=== PATIENT | female | born 1965 | race Hispanic/Latino ===

== ENCOUNTER 2018-07-02 19:49 | Inpatient (IN) | payer OTHER ==
[~2018-07-02] VITALS: Ht 152.4 cm; Wt 72.6 kg
[2018-07-02 21:50] LABS: BASOPHILS # (AUTO) 0.1 (0.0-0.1); BASOPHILS % 0.3 % (0.0-1.0); EOSINOPHILS # (AUTO) 0.3 (0.0-0.4); EOSINOPHILS % 1.3 % (0.0-6.0); HEMOGLOBIN 12.5 g/dL (12.0-16.0); LYMPHOCYTES # (AUTO) 0.5 (1.0-3.2); MEAN CORPUSCULAR HEMOGLOBIN 30.6 pg (28-32); MEAN CORPUSCULAR HGB CONC 34.7 g/dL (31-35); MEAN CORPUSCULAR VOLUME 88.2 fL (81-99); MONOCYTES # (AUTO) 1.1 (0.2-0.8); MONOCYTES % 4.5 % (4.4-11.3); NEUTROPHILS # (AUTO) 17.9 (2.1-6.9); NEUTROPHILS % 76.5 % (38.7-80.0); PLATELET COUNT 153 x10e3/uL (140-360); RED BLOOD COUNT 4.08 x10e6/uL (3.6-5.1); RED CELL DISTRIBUTION WIDTH 12.7 % (11.7-14.4)
[2018-07-02 22:15] LABS: ALBUMIN/GLOBULIN RATIO 0.7 (0.8-2.0); ANION GAP 18.7 mmol/L (8-16); CALCIUM 9.7 mg/dL (8.4-10.2); CREATININE, SERUM 1.54 mg/dL (0.57-1.11); POTASSIUM 4.7 mmol/L (3.5-5.1)
[2018-07-02] MEDS ORDERED: PIPER-TAZ 3.375 GM 50 ML IV ONE (22:30)
[2018-07-02] MEDS ORDERED: METRONIDAZOLE 500MG/NS 100ML 100 ML IV ONE (22:30)
[2018-07-02 23:19] LABS: BACTERIA,URINE MANY /HPF; BILIRUBIN,URINE NEGATIVE (NEGATIVE); CLARITY,URINE SL CLOUDY (CLEAR); COLOR,URINE YELLOW (YELLOW); KETONES,URINE 1+ (NEGATIVE); LEUKOCYTE ESTERASE ,URINE NEGATIVE (NEGATIVE); NITRITE,URINE NEGATIVE (NEGATIVE); PROTEIN,URINE DIPSTICK 2+ (NEGATIVE); URINE UROBILINOGEN 0.2 mg/dL (0.2 - 1)
[2018-07-02 23:20] LABS: EPITHELIAL CELLS,URINE FEW /LPF
[2018-07-02] MEDS ORDERED: INSULIN REGULAR, HUMAN 100 UNIT/1 ML 3ML VIAL IV ONE (23:30)
[2018-07-02] MEDS ORDERED: ONDANSETRON HCL INJ 2MG/ML 2ML 2 MG/ML VIAL IV STA (23:37)
[2018-07-03] MEDS ORDERED: SODIUM CHLORIDE 0.9% 1000ML 1,000 ML IV SCH ×2
[2018-07-03] MEDS ORDERED: CEFTRIAXONE SOD 1 GM/NS 50 ML 50 ML IV ONE (00:04)
[2018-07-03] MEDS ORDERED: CEFTRIAXONE SOD 1 GM/NS 50 ML 50 ML IV STA (00:07)
[2018-07-03] MEDS ORDERED: IOPAMIDOL 370 MG/ML 200 ML INFUS..BTL INJ ONE (00:36)
[2018-07-03] MEDS ORDERED: SODIUM CHLORIDE 0.9% 50ML 50 ML ONE (00:36)
--- NOTE | 2018-07-03 01:23 | Diagnostic Imaging Report ---
EXAMINATION: CT of the abdomen and pelvis with contrast. TECHNIQUE: Helical CT images of the abdomen and pelvis were performed from the lung bases to the lesser trochanters after the intravenous administration of 100 cc of Omnipaque 300 and the oral administration of none. Coronal and sagittal reformatted images were obtained.Dose modulation, iterative reconstruction, and/or weight based adjustment of the mA/kV was utilized to reduce the radiation dose to as low as reasonably achievable. COMPARISON: None. CLINICAL HISTORY:Pain, vomiting, nausea DISCUSSION: ABDOMEN/PELVIS: LOWER THORAX:Unremarkable. HEPATOBILIARY: No focal hepatic lesions. No intra-or extrahepatic biliary ductal dilation. The gallbladder is normal. SPLEEN: No splenomegaly. PANCREAS: No focal masses or ductal dilatation. ADRENALS: No adrenal nodules. KIDNEYS/URETERS: Urothelial enhancement of the ureter with air in the mildly dilated renal collecting system of the left kidney. No region of decreased enhancement within the renal parenchyma or air within the renal parenchyma. PELVIC ORGANS/BLADDER: The bladder is normal. PERITONEUM/RETROPERITONEUM: No free air or fluid. LYMPH NODES: No intra-abdominal, retroperitoneal, pelvic or inguinal lymphadenopathy. VESSELS: The celiac trunk,superior and inferior mesenteric and bilateral renal arteries are patent The portal, superior mesenteric and splenic veins are patent. GI TRACT: No distention or wall thickening. BONES AND SOFT TISSUE: No bony destructive lesions. No soft tissue abnormalities. 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 Signed by: Dr. Dago Keenan M.D. on 07/03/2018 1:20 AM
[2018-07-03] MEDS: CEFTRIAXONE SOD 1 GM/NS 50 ML 50 ML IV SCH (02:12)
[2018-07-03] MEDS: ONDANSETRON HCL INJ 2MG/ML 2ML 2 MG/ML VIAL IV PRN ×4 (02:15→21:56)
--- OUTSIDE RECORDS SUMMARY | 2018-07-03 02:17 | XMS REPORT ---
Author Author [facility] Address Unknown Phone Unavailable Care Team Providers Care Director Of Surgery Name Role Phone Ragini CALIX Unavailable Unavailable Problems This patient has no known problems. Allergies, Adverse Reactions, Alerts This patient has no known allergies or adverse reactions. Medications This patient has no known medications. Results Test Description Test Time Test Comments Text Results Atomic Results Result Comments CT ABDOMEN/PELVIS W 2018-07-03 01:07:00 [facility] [address] [address] Patient Name: CHUCKY CABRALES MR #: [id number] : 1965 Age/Sex: 52/F Req #: [id number] Adm Physician: Ordered by: KAMARI DAHL SPINNING FRAME TENDER Report #: [id number] Location: ER Room/Bed: Procedure: [id number] CT/CT ABDOMEN/PELVIS W Exam Date: Exam Time: REPORT STATUS: Signed EXAMINATION: CT of the abdomen and pelvis with contrast. TE CHNIQUE: Helical CT images of the abdomen and pelvis were performed from the lung bases to the lesser trochanters after the intravenous administration of 100 cc of Omnipaque 300 and the oral administration of none. Coronal and sagittal reformatted images were obtained.Dose modulation, iterative reconstruction, and/or weight based adjustment of the mA/kV was utilized to reduce the radiation dose to as low as reasonably achievable. COMPARISON: None. CLINICAL HISTORY:Pain, vomiting, nausea DISCUSSION: ABDOMEN/PELVIS: LOWER THORAX:Unremarkable. HEPATOBI LIARY: No focal hepatic lesions. No intra-or extrahepatic biliary ductal dilation. The gallbladder is normal. SPLEEN: No splenomegaly. PANCREAS: No focal masses or ductal dilatation. ADRENALS: No adrenal nodules. KIDNEYS/URETERS: Urothelial enhancement of the ureter with air in the mildly dilated renal collecting system of the left kidney. No region of decreased enhancement within the renal parenchyma or air within the renal parenchyma. PELVIC ORGANS/BLADDER: The bladder is normal. PERITONEUM/RETROPERITONEUM: No free air or fluid. LYMPH NODES: No intra- abdominal, retroperitoneal, pelvic or inguinal lymphadenopathy. VESSELS: The celiac trunk,superior and inferior mesenteric and bilateral renal arteries are patent The portal, superior mesenteric and splenic veins are patent. GI TRACT: No distention or wall thickening. BONES AND SOFT TISSUE: No bony destructive lesions. No soft tissue abnormalities. 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 Signed by: Dr. Marcello Howell M.D. on 07/03/2018 1:20 AM Dictated By: MARCELLO HOWELL MD 9 Transcribed By: VANDANA on 07/03/18119 COPY TO: KAMARI DAHL NP
[2018-07-03] MEDS ORDERED: DEXTROSE 50% SYRINGE 50 ML IV PRN (02:30)
[2018-07-03] MEDS: SODIUM CHLORIDE 0.9% 1000ML 1,000 ML IV SCH ×2 (03:01→14:00)
[2018-07-03] MEDS ORDERED: no home meds (03:52)
[2018-07-03] MEDS ORDERED: METOCLOPRAMIDE HCL 10 MG/2ML VIAL ONE (04:54)
[2018-07-03] MEDS ORDERED: DIPHENHYDRAMINE HCL INJ 50 MG/ML VIAL ONE (04:54)
[2018-07-03] MEDS ORDERED: METOCLOPRAMIDE HCL 10 MG/2ML VIAL IV ONE (05:15)
[2018-07-03] MEDS ORDERED: DIPHENHYDRAMINE HCL INJ 50 MG/ML VIAL IV ONE (05:15)
[2018-07-03] MEDS ORDERED: ACETAMINOPHEN 1000 MG/100 ML IV PRN (06:45)
[2018-07-03] MEDS ORDERED: INSULIN REGULAR, HUMAN 100 UNIT/1 ML 3ML VIAL SQ SCH ×2 (07:30→16:30)
--- NOTE | 2018-07-03 08:08 | NUR ---
Dr. Roach rounding at bedside at this time. Dr. Roach updated on pt's status and bed status. Pt is in no acute distress at this time.
--- NOTE | 2018-07-03 08:35 | NUR ---
Placed call to Dr. Roach's office regarding switching order from levemir to lantus. Spoke with A/S.
--- NOTE | 2018-07-03 08:58 | NUR ---
Dr. Michael returned call regarding consult. Addendum: 07/03/[address] Michael provided additional orders.
[2018-07-03 09:02] LABS: BASOPHILS % 0.2 % (0.0-1.0); EOSINOPHILS # (AUTO) 0.2 (0.0-0.4); EOSINOPHILS % 0.9 % (0.0-6.0); HEMATOCRIT 32.5 % (34.2-44.1); HEMOGLOBIN 11.1 g/dL (12.0-16.0); LYMPHOCYTES # (AUTO) 0.5 (1.0-3.2); LYMPHOCYTES % 2.6 % (18.0-39.1); MEAN CORPUSCULAR HEMOGLOBIN 30.9 pg (28-32); MEAN CORPUSCULAR HGB CONC 34.2 g/dL (31-35); MEAN CORPUSCULAR VOLUME 90.5 fL (81-99); MONOCYTES # (AUTO) 0.9 (0.2-0.8); MONOCYTES % 4.7 % (4.4-11.3); NEUTROPHILS # (AUTO) 17.4 (2.1-6.9); PLATELET COUNT 141 x10e3/uL (140-360); RED BLOOD COUNT 3.59 x10e6/uL (3.6-5.1)
[2018-07-03] MEDS ORDERED: INSULIN LISPRO 100 UNIT/1 ML 3ML VIAL SQ ONE (09:30)
--- NOTE | 2018-07-03 09:38 | NUR ---
Dr. Alamo confirmed giving the pt an additonal 10 units of Humalog and starting the high sliding scale at lunch time. Addendum: 07/03/18 at 0948 by JOSIE additional
[2018-07-03] MEDS ORDERED: INSULIN LISPRO 100 UNIT/1 ML 3ML VIAL SQ STA (09:40)
[2018-07-03 11:01] LABS: BAND NEUTROPHILS % (MANUAL) 1 %; LYMPHOCYTES % (MANUAL) 1 % (19-48); METAMYELOCYTES % (MANUAL) 1 % (0-0); MONOCYTES % (MANUAL) 1 % (3.4-9.0); NEUTROPHILS % (MANUAL) 96 % (40-74)
[2018-07-03 11:02] LABS: PLATELET ESTIMATE SLIGHTLY DECREASED; PLATELET MORPHOLOGY COMMENT NORMAL; RBC MORPHOLOGY COMMENT NORMAL
--- NOTE | 2018-07-03 11:12 | Consultation ---
DATE OF CONSULTATION: 07/03/2018 REASON FOR CONSULTATION: Pyelonephritis. HISTORY OF PRESENT ILLNESS: Arely Beltran is a 52-year-old woman with no previous urological evaluation. The patient does report having stress type urinary incontinence. Denies urgency. No incontinence. Denies previous urinary tract infections, urolithiasis, or hematuria. She denies any fevers. The patient had left-sided abdominal pains and flank pains reported to the emergency room, was found to have pyelonephritis, was admitted. Urological consultation was sought. PAST SURGICAL HISTORY: None. ALLERGIES: PENICILLIN. CURRENT MEDICATIONS: Please refer to the MAR. SOCIAL HISTORY: The patient denies smoking, ethanol, and drug use. She is a homemaker. She has supportive family at the bedside. FAMILY HISTORY: Noncontributory to the active urological problems. REVIEW OF SYSTEMS: Discussed as above in history of present illness. PAST MEDICAL HISTORY: Otherwise negative for all systems. PHYSICAL EXAMINATION: GENERAL: Very pleasant woman lying in bed, in no apparent distress. She is currently afebrile. VITAL SIGNS: Currently stable. ABDOMEN: Soft, nondistended, and nontender without costovertebral angle tenderness. Kidneys not palpable, without hepatosplenomegaly. No obvious evidence of hernia. For the remaining physical examination systems, please refer to the admission history and physical as well as the ERT sheet. IMAGING AND LABORATORY STUDIES: CT scan of the abdomen and pelvis shows mild left-sided hydronephrosis with pyelonephritis with emphysematous pyelitis, but no evidence of stone. The patient's sodium was low at 130. The patient's glucose is highly elevated at 575. The patient's creatinine is elevated at 1.54. The patient does have severe leukocytosis with white blood cell count of 23,300. Urinalysis shows microhematuria and pyuria. Lactic acid is elevated consistent with sepsis. Blood cultures are pending. ER doctor told me that she would call the lab to ensure that urine culture is actually being done and is ordered. ASSESSMENT: 1. Stress-type urinary incontinence. 2. Left renal colic. 3. Left pyelonephritis. 4. Complicated urinary tract infection. 5. Mild left hydronephrosis. 6. Hyponatremia. 7. Acute renal failure. 8. Leukocytosis. 9. Microhematuria. 10. Urosepsis present on admission. PLAN: 1. I agree with consulting Infectious Disease service. 2. The patient will need cystoscopy and retrograde pyelograms when she is in her normal state of health. 3. The patient will need ongoing urological followup as well as workup. Thank you very much for involving us in the care of your patient. We will be happy to follow her along with you as well as an outpatient. Sergio MD Katie OH/ADARSH /[id number] cc: Amber Roach MD
--- NOTE | 2018-07-03 11:18 | NUR ---
Pt noted to be resting in bed with eyes closed at this time. Family member is at bedside.
[2018-07-03] MEDS ORDERED: INSULIN LISPRO 100 UNIT/1 ML 3ML VIAL SQ SCH (11:30)
--- NOTE | 2018-07-03 13:13 | NUR ---
Call placed to Dr. Roach's office regarding insulin orders, spoke with A/S.
--- NOTE | 2018-07-03 13:20 | NUR ---
Dr. Roach returned the call that was placed and reclarified insulin orders.
--- NOTE | 2018-07-03 13:51 | NUR ---
PATIENT ARRIVED ON THE UNIT AT 1341 PER BED- PATIENT IN STABLE CONDITION WITH NO S/S OF RESPIRATORY DISTRESS. NO PAIN VOICED. CALL LIGHT IS WITHIN REACH, PATIENT INSTRUCTED TO CALL FOR ASSISTANCE NEEDED.
[2018-07-03 13:55] VITALS: BP 132/61
[2018-07-03 14:00] VITALS: BP 132/61
--- NOTE | 2018-07-03 14:23 | NUR ---
DR. RO ROUNDING ON PATIENT AT THIS TIME, WILL ADD NEW ORDERS.
[2018-07-03 14:40] LABS: CHOLESTEROL 180 MD/DL (0-199); HDL CHOLESTEROL 10 MG/DL (40-60); TRIGLYCERIDES 493 MG/DL (0-149)
--- NOTE | 2018-07-03 14:52 | History and Physical ---
HISTORY OF PRESENT ILLNESS: Ms. Beltran is a 52-year-old female, who denies any prior medical history, came to the emergency room complaining of two days of nausea, vomiting, and chills. PAST MEDICAL HISTORY: She denies. ALLERGIES: SHE IS ALLERGIC TO PENICILLIN. PAST SURGICAL HISTORY: Denies any surgeries. SOCIAL HISTORY: She lives at home with her family. She does not smoke and she does not drink. PHYSICAL EXAMINATION: GENERAL: Today, she is awake and alert. She is feeling okay. VITAL SIGNS: Temperature is 99.4 and blood pressure 162/84. HEART: Regular rate. LUNGS: Clear to auscultation. ABDOMEN: Soft. LAB WORK: White count is 23,360, hemoglobin 12.5, and hematocrit 36. Potassium is 4.7, glucose was 326 this morning. Lactic acid is elevated. Sodium is 130, creatinine is 1.54. She had an abdominal and pelvic CT that shows left upper urinary tract with emphysematous pyelitis. ADMITTING DIAGNOSES: 1. New onset diabetes with chronic kidney disease. 2. Chronic kidney disease, stage 3. 3. Left pyelonephritis. PLAN: The plan with this patient is to get Infectious Disease consult and Urology consult. We are going to consult Endocrinology. ADA diet. Sliding scale with insulin. We are going to start the patient on Humalog and Levemir. Continue IV antibiotics. Continue IV fluids. Continue to monitor blood sugar and white count. All this was discussed with the patient. All questions were answered to satisfaction. MD TOMAS Esquivel/MODL /[id number]
[2018-07-03 15:00] LABS: THYROID STIMULATING HORMONE 2.338 uIU/mL (0.350-4.940)
[2018-07-03 16:00] VITALS: BP 134/60
[2018-07-03] MEDS: INSULIN LISPRO 100 UNIT/1 ML 3ML VIAL SQ SCH ×3 (16:30→20:32)
[2018-07-03] MEDS: BISACODYL 10 MG SUPP PR PRN (16:59)
[2018-07-03] MEDS: LEVOFLOXACIN 500MG/D5W 100ML 100 ML IV SCH (17:22)
--- NOTE | 2018-07-03 17:53 | Consultation ---
DATE OF CONSULTATION: 07/03/2018 Endocrine Consultation Thank you very much for referring this patient. HISTORY OF PRESENT ILLNESS: This is a 52-year-old lady, who was referred to me for evaluation of new-onset diabetes mellitus. The patient speaks Czech mostly. She came to the hospital with history of abdominal pain, polyuria, and polydipsia. On further evaluation, blood sugar is 575; however, anion gap was normal. Her creatinine was high at 1.54. The patient does not have history of diabetes in the past, but she does have family history of diabetes mellitus. She is complaining of weight loss and leg cramps. PHYSICAL EXAMINATION: GENERAL: Today, the patient is alert, awake, little bit apprehensive. VITAL SIGNS: Her heart rate is around 78, blood pressure is 130/80 mmHg. HEENT: Essentially unremarkable. Thyroid is palpable. Clinically, she is euthyroid. CHEST: Bilateral vesicular breathing, no rales. CARDIAC: First and second heart sounds. There is no third or fourth heart sound. GI: Abdomen is soft and non-tender. 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 CLINICAL IMPRESSION: 1. Diabetes mellitus, type 2, new onset. 2. Urinary tract infection, rule out pyelonephritis. PLAN: The plan at this time is to do hemoglobin A1c, thyroid function test. Monitor her blood sugars closely and start her on combination of Lantus and Humalog insulin. I have discussed in detail the course of action with the patient and the family. Thanks again for referring this patient. I will be following this patient with you. MD ZAIN Tyler/MODL /[id number] DAMON
--- NOTE | 2018-07-03 19:17 | NUR ---
PATIENT IS IN STABLE CONDITION WITH NO S/S OF RESPIRATORY DISTRESS. NO PAIN VOICED. PATIENT RECEIVED NAUSEA MEDICATION x1. FAMILY MEMBER PRESENT IN ROOM. IV FLUIDS INFUSING. CALL LIGHT IS WITHIN REACH OF PATIENT- PATIENT INSTRUCTED TO CALL FOR ASSISTANCE NEEDED. BEDSIDE REPORT GIVEN TO ONCOMING NURSE.
--- NOTE | 2018-07-03 19:53 | NUR ---
RECEIVED PT IN BED AOX3 .RESPIRATIONS ARE EVEN AND UNLABORED .FAMILY AT THE BEDSIDE .CALL LIGHT WITH IN REACH .CONTINUE TO MONITOR
[2018-07-03 20:00] VITALS: BP 127/62
[2018-07-03] MEDS ORDERED: INSULIN GLARGINE 100 UNITS/ML VIAL SQ SCH (21:00)
--- NOTE | 2018-07-03 23:08 | Consultation ---
DATE OF CONSULTATION: REASON FOR CONSULTATION: Recommendation for antibiotic. HISTORY OF PRESENT ILLNESS: This patient is very pleasant 52-year-old female, has no past medical history and no past surgical history, comes in with 2 days of nausea, vomiting, and abdominal discomfort. The patient comes into the emergency room, where she was evaluated. Her white count was 23 and hemoglobin 12. The patient had a CAT scan that showed left upper tract pyelonephritis. The patient is being admitted. I am asked to see her. She is currently lying in bed comfortably. She denies urgency or frequency. PAST MEDICAL HISTORY: She denies. PAST SURGICAL HISTORY: She denies. ALLERGIES: NKA. SOCIAL HISTORY: There is no smoking, drug abuse, or alcohol abuse. FAMILY HISTORY: Noncontributory. REVIEW OF SYSTEMS: HEENT: Negative. PULMONARY: Negative. CARDIAC: Negative. : Negative. SKIN: There is no rash. LABORATORY DATA: On admission, white count 23.1, hemoglobin 12. Sodium 130, potassium 4.7, glucose 575. Her blood cultures and urine cultures are still pending. The patient was started on ceftriaxone. PHYSICAL EXAMINATION: GENERAL: She is currently alert, oriented, does not seem to be in acute distress. VITAL SIGNS: Stable. Currently afebrile. HEENT: She is not icteric. NECK: Supple. CHEST: Clear. HEART: S1 and S2. No S3, S4, or murmur. ABDOMEN: Soft. Bowel sounds present. No tenderness. EXTREMITIES: No edema. SKIN: No rash. IMPRESSION: 1. Sepsis secondary to pyelonephritis, currently on Rocephin. We will add Levaquin. Await urine cultures and blood cultures. Recheck CBC. Recheck Chem panel. 2. Diabetes. 3. We will follow with you. Thank you so much for asking me to see this patient. MD PIERCE Heard/ADARSH /[id number]
[2018-07-03 23:50] VITALS: BP 138/65
[2018-07-04] VITALS (7 sets, daily range): BP systolic 125–183; BP diastolic 65–90
[2018-07-04] MEDS: BISACODYL 10 MG SUPP PR PRN
[2018-07-04] MEDS: CEFTRIAXONE SOD 1 GM/NS 50 ML 50 ML IV SCH (02:00)
[2018-07-04] MEDS: SODIUM CHLORIDE 0.9% 1000ML 1,000 ML IV SCH ×4 (05:11→22:55)
--- NOTE | 2018-07-04 06:10 | NUR ---
PT RESTED DURING THE NIGHT AND DENIES PAIN PT HAD BM TODAY .FAMILY NEAR TO THE BEDSIDE .CONTINUE TO MONITOR
[2018-07-04 06:14] LABS: BASOPHILS % 0.2 % (0.0-1.0); EOSINOPHILS % 0.2 % (0.0-6.0); HEMATOCRIT 31.1 % (34.2-44.1); HEMOGLOBIN 10.6 g/dL (12.0-16.0); LYMPHOCYTES # (AUTO) 0.8 (1.0-3.2); LYMPHOCYTES % 4.2 % (18.0-39.1); MEAN CORPUSCULAR HEMOGLOBIN 30.6 pg (28-32); MEAN CORPUSCULAR HGB CONC 34.1 g/dL (31-35); MEAN CORPUSCULAR VOLUME 89.9 fL (81-99); MONOCYTES # (AUTO) 1.3 (0.2-0.8); MONOCYTES % 6.7 % (4.4-11.3); NEUTROPHILS # (AUTO) 17.7 (2.1-6.9); NEUTROPHILS % 88.2 % (38.7-80.0); PLATELET COUNT 150 x10e3/uL (140-360); RED BLOOD COUNT 3.46 x10e6/uL (3.6-5.1); RED CELL DISTRIBUTION WIDTH 13.4 % (11.7-14.4)
[2018-07-04 06:31] LABS: ALANINE AMINOTRANSFERASE 16 IU/L (0-55); ALBUMIN 2.2 g/dL (3.5-5.0); ALBUMIN/GLOBULIN RATIO 0.6 (0.8-2.0); ALKALINE PHOSPHATASE 99 IU/L (40-150); ANION GAP 14.2 mmol/L (8-16); BLOOD UREA NITROGEN 24 mg/dL (7-26); BUN/CREATININE RATIO 28 (6-25); CALCIUM 8.2 mg/dL (8.4-10.2); CARBON DIOXIDE 18 mmol/L (22-29); CHLORIDE 104 mmol/L (98-107); CREATININE, SERUM 0.87 mg/dL (0.57-1.11); EST GLOMERULAR FILTRATION RATE > 60 ML/MIN (60-); GLUCOSE 221 mg/dL (74-118); POTASSIUM 4.2 mmol/L (3.5-5.1); SODIUM 132 mmol/L (136-145)
--- NOTE | 2018-07-04 07:11 | NUR ---
REPORT GIVEN ON COMING NURSE
[2018-07-04] MEDS: INSULIN LISPRO 100 UNIT/1 ML 3ML VIAL SQ SCH ×7 (07:30→21:00)
[2018-07-04] MEDS ORDERED: LACTULOSE SYRUP 20 GM/30 ML UDC PO ONE (10:15)
--- NOTE | 2018-07-04 11:47 | Progress Note ---
DATE: 07/04/2018 SUBJECTIVE: Ms. Beltran is a 52-year-old female, who denies any prior medical history, came to the emergency room complaining of two days of nausea, vomiting, and chills. She was found to have elevated blood sugar and pyelonephritis, started on insulin and IV antibiotics. OBJECTIVE: GENERAL: Today, she is awake and alert. VITAL SIGNS: Temperature is 97.7 and blood pressure 125/69. HEART: Regular rate. LUNGS: Clear to auscultation. ABDOMEN: Distended and soft. LABORATORY DATA: On the lab work; potassium 4.2, creatinine is 0.87, glucose is 221. White count is 20,000, hemoglobin 10.6, and hematocrit 31.1. CAT scan showed probably pyelonephritis. ASSESSMENT: On this patient: 1. New onset diabetes with hyperglycemia. 2. Diabetes with chronic kidney disease. 3. Chronic kidney disease, stage 3, improving. 4. Sepsis secondary to left pyelonephritis. 5. Leukocytosis. 6. Constipation. PLAN: At present time is to continue ADA diet, continue insulin, continue IV antibiotics. We are going to give her some lactulose to see if we can get a bowel movement. We are awaiting for final urine culture results. All this was discussed with the patient and daughter at bedside. All questions were answered to satisfaction. MD TOMAS Esquivel/ADARSH /[id number]
[2018-07-04 12:46] LABS: ALBUMIN 2.2 g/dL (3.5-5.0); BILIRUBIN,DIRECT 0.2 mg/dL (0.0-0.5)
[2018-07-04] MEDS: ONDANSETRON HCL INJ 2MG/ML 2ML 2 MG/ML VIAL IV PRN ×3 (14:32→22:55)
--- NOTE | 2018-07-04 16:21 | NUR ---
CASE MANAGEMENT INITIAL ASSESSMENT Life Claims Examiner to bedside to discuss plan of care with patient/family. CM/SW role and care transitions discussed. Anticipated discharge plan discussed along with duration of care. CM/SW discussed patients right to make decisions in care. CM/SW work hours given. Patient lives: [place] Admit/Transfer: ER Hospital/ER visits since last admit: NONE POA/Emergency contact: SHIELA / @ [phone] Current/Previous Home Health: NONE PCP/Follow-up Care: NONE Current/Previous DME: NONE Other Services: NONE Employment Status: UNEMPLOYED, HOUSEWIFE Areas of Concerns: DIABETES TEACHING; NEW ONSET DM Referral Needs: GLUCOMETER, DIETITIAN Education Needs: DM TEACHING, GLUCOMETER, DIET IMM/GODOY given and signed (if applicable): N/A Goal for discharge: RETURN HOME SAFELY CM/SW left business card at the bedside with contact information. Name and number was also written on the patients whiteboard. Patient verbalized understanding of discussion. CM will follow-up with ongoing discharge and transition of care needs.
[2018-07-04] MEDS: LEVOFLOXACIN 500MG/D5W 100ML 100 ML IV SCH (16:56)
[2018-07-04] MEDS ORDERED: LACTULOSE SYRUP 20 GM/30 ML UDC PO NR ×2 (18:00→22:00)
--- NOTE | 2018-07-04 19:05 | NUR ---
BS report completed with morning nurse. Pt alert to name. Setswana speaking. Sitting on recliner. Family at bedside. Denies pain at this time. Call [place] within reach. Will continue to monitor.
[2018-07-04] MEDS: INSULIN GLARGINE 100 UNITS/ML VIAL SQ SCH (21:00)
[2018-07-05] VITALS (7 sets, daily range): BP systolic 152–177; BP diastolic 74–98
[2018-07-05] MEDS: ONDANSETRON HCL INJ 2MG/ML 2ML 2 MG/ML VIAL IV PRN ×5 (02:50→23:35)
[2018-07-05] MEDS: INSULIN LISPRO 100 UNIT/1 ML 3ML VIAL SQ SCH ×7 (08:53→21:00)
[2018-07-05] MEDS: SODIUM CHLORIDE 0.9% 1000ML 1,000 ML IV SCH ×2 (08:54→17:49)
[2018-07-05] MEDS ORDERED: LACTULOSE SYRUP 20 GM/30 ML UDC PO PRN (10:15)
--- NOTE | 2018-07-05 12:14 | Progress Note ---
DATE: 07/05/2018 SUBJECTIVE: Ms. Beltran is a 52-year-old female, who denies any past medical history, came to the emergency room complaining of nausea, vomiting, and chills. She was found to have blood sugar around 500 and pyelonephritis, started on IV antibiotics. She is on ADA diet and insulin. At present time, she is doing much better. PHYSICAL EXAMINATION: GENERAL: She is awake and alert. VITAL SIGNS: Temperature is 98.9, blood pressure 160/92. HEART: Regular rate. LUNGS: Clear to auscultation. ABDOMEN: Soft. LABORATORY DATA: On the blood work, potassium 4.3, creatinine 0.87, glucose 221. White count 20,000, hemoglobin 10.6, hematocrit 31.1. ASSESSMENT: 1. New-onset diabetes with hyperglycemia. 2. And leukocytosis. 3. Sepsis secondary to left pyelonephritis. 4. Constipation. PLAN: At present time is to continue ADA diet, continue insulin, continue IV antibiotics, continue to monitor blood sugar. Urine culture was positive for E coli that is sensitive to cefuroxime. So once she gets cleared by Infectious Disease and assembly leader, we can put her on p.o. antibiotics and discharge home if tomorrow white count is down to normal. All this was discussed with the patient. All questions were answered to satisfaction. MD TOMAS Esquivel/ADARSH /[id number]
[2018-07-05] MEDS: CEFTRIAXONE SOD 1 GM/NS 50 ML 50 ML IV SCH (12:52)
--- NOTE | 2018-07-05 19:05 | NUR ---
BS report completed with morning nurse. Pt alert to name. Mongolian speaking. Lying in bed HOB 60 degrees. Family at bedside. Denies pain at this time. Call [place] within reach. Will continue to monitor.
[2018-07-05] MEDS: INSULIN GLARGINE 100 UNITS/ML VIAL SQ SCH (21:00)
--- NOTE | 2018-07-05 23:36 | NUR ---
Admin prn Zofran c/o nausea. No vomiting noted. No distress noted. Call [place] within reach. Family at bedside.
[2018-07-06] VITALS (7 sets, daily range): BP systolic 120–174; BP diastolic 63–80
[2018-07-06] MEDS: SODIUM CHLORIDE 0.9% 1000ML 1,000 ML IV SCH (01:49)
[2018-07-06] MEDS: ONDANSETRON HCL INJ 2MG/ML 2ML 2 MG/ML VIAL IV PRN ×2 (04:43→09:30)
[2018-07-06 06:14] LABS: HEMOGLOBIN 12.3 g/dL (12.0-16.0); MEAN CORPUSCULAR HEMOGLOBIN 30.1 pg (28-32); MEAN CORPUSCULAR HGB CONC 34.2 g/dL (31-35); MEAN CORPUSCULAR VOLUME 88.2 fL (81-99); PLATELET COUNT 206 x10e3/uL (140-360); RED BLOOD COUNT 4.08 x10e6/uL (3.6-5.1); RED CELL DISTRIBUTION WIDTH 13.2 % (11.7-14.4)
[2018-07-06 06:44] LABS: ANION GAP 10.9 mmol/L (8-16); BLOOD UREA NITROGEN 13 mg/dL (7-26); BUN/CREATININE RATIO 18 (6-25); CALCIUM 8.1 mg/dL (8.4-10.2); CARBON DIOXIDE 24 mmol/L (22-29); CHLORIDE 103 mmol/L (98-107); CREATININE, SERUM 0.74 mg/dL (0.57-1.11); EST GLOMERULAR FILTRATION RATE > 60 ML/MIN (60-); GLUCOSE 143 mg/dL (74-118); SODIUM 135 mmol/L (136-145)
[2018-07-06 06:48] LABS: POTASSIUM 2.9 mmol/L (3.5-5.1)
--- NOTE | 2018-07-06 06:52 | NUR ---
RECEIVED PATIENT RESTING IN BED. NO ACUTE DISTRESS NOTED. FAMILY AT BEDSIDE. CALL LIGHT WITHIN REACH. BED IN THE LOWEST POSITION.
[2018-07-06 07:21] LABS: LYMPHOCYTES % (MANUAL) 16 % (19-48); MONOCYTES % (MANUAL) 10 % (3.4-9.0); NEUTROPHILS % (MANUAL) 74 % (40-74); PLATELET ESTIMATE ADEQUATE; PLATELET MORPHOLOGY COMMENT NORMAL; TEAR DROP CELLS RN
[2018-07-06] MEDS: INSULIN LISPRO 100 UNIT/1 ML 3ML VIAL SQ SCH ×7 (07:30→16:30)
[2018-07-06] MEDS ORDERED: POTASSIUM CHLORIDE 20 MEQ TAB CR PO STA (09:10)
[2018-07-06] MEDS: CEFTRIAXONE SOD 1 GM/NS 50 ML 50 ML IV SCH (12:50)
[2018-07-06] MEDS ORDERED: POTASSIUM CHLORIDE 20 MEQ TAB CR PO SCH (13:00)
[2018-07-06] MEDS ORDERED: INSULIN LISPRO 100 UNIT/1 ML 3ML VIAL SQ ONE (14:00)
[2018-07-06] MEDS ORDERED: ONDANSETRON HCL 4 MG ORAL DISINTEGRATING TAB PO PRN (14:30)
--- NOTE | 2018-07-06 17:58 | NUR ---
RECEIVED DC ORDER FROM MD, PATIENT IS IN STABLE CONDITION. DENIES PAIN OR DISCOMFORT. IV LINE TO RIGHT AC INFILTRATED EARLIER, MD NOTIFIED, NO BLEEDING AT SITE NOTED. DISCHARGE TEACHING PROVIDED TO PATIENT AND 2 FAMILY MEMBER, THEY ALL VERBALIZED UNDERSTANDING. DISCHARGE FOLDER AND PERSONAL ITEMS ON HAND. PATIENT ACCOMPANIED TO PRIVATE AUTO VIA WHEELCHAIR BY STAFF.
--- NOTE | 2018-07-06 18:32 | Discharge Summary ---
HOSPITAL COURSE: Ms. Beltran is a 52-year-old female, who denies any prior medical history, who came complaining of nausea, vomiting, and chills to the emergency room. She was found to have pyelonephritis and elevated blood sugar. She has been seen by Infectious Disease, urologist, and jewelry engraver much better. Potassium is a little low today, so we are going to replace it and we are going to see if we can discharge her home if is okay with Dr. Alamo today. PHYSICAL EXAMINATION: GENERAL: She is awake and alert. VITAL SIGNS: Temperature is 98.3, blood pressure 163/79. HEART: Regular rate. LUNGS: Clear to auscultation. ABDOMEN: Soft. LABORATORY DATA: On the blood work; potassium is 2.9, creatinine is 0.74, glucose 143, white count 11.2, hemoglobin 12.3. Urine shows E coli infection. DISCHARGE DIAGNOSES: 1. New-onset diabetes. 2. Leukocytosis. 3. Sepsis secondary to left pyelonephritis. 4. Constipation. 5. Urinary tract infection with Escherichia coli. 6. Hypertension. PLAN: The plan at present time is to see if we can discharge her home on ADA diet and diabetic medication as per Dr. Alamo. She is going to be on Ceftin for the urine infection. We are going to start her on Colace, statins, and blood pressure medications. We are going to replace potassium and repeat the levels today; if stable, she may go home today or tomorrow. All this was discussed with the patient. All questions were answered to satisfaction. MD TOMAS Esquivel/ADARSH /[id number]
== END 2018-07-06 17:58 | disposition home or self-care (01) | DRG 872 ==
LOC: ER 19:49 → ERHOLD 07-03 02:14 → MED/SURG3 07-03 13:37
PROVIDERS: ADMIT Internal Medicine; ATTEND Internal Medicine
DX: A41.51 Sepsis due to Escherichia coli [E. coli] (principal); N13.6 Pyonephrosis; E87.1 Hypo-osmolality and hyponatremia; N17.9 Acute kidney failure, unspecified; K59.00 Constipation, unspecified; Z16.12 Extended spectrum beta lactamase (ESBL) resistance; Z79.84 Long term (current) use of oral hypoglycemic drugs; N39.3 Stress incontinence (female) (male); N23 Unspecified renal colic; I10 Essential (primary) hypertension; E87.6 Hypokalemia; E11.65 Type 2 diabetes mellitus with hyperglycemia; E11.22 Type 2 diabetes mellitus with diabetic chronic kidney disease; I12.9 Hypertensive chronic kidney disease with stage 1 through stage 4 chronic kidney disease, or unspecified chronic kidney disease; N18.3 Chronic kidney disease, stage 3 (moderate)
CPT/HCPCS: 36415; 74177; 80048; 80053; 80061; 80076; 81001; 82150; 82948; 83036; 83605; 83690; 83880; 84132; 84439; 84443; 85007; 85025; 85027; 87040; 87086; 87186; 99284; J0696; J1200; J1815; J1956; J2405; J2543; J2765; J7030; Q9967

== ENCOUNTER 2024-05-22 12:25 | Inpatient (IN) | payer OTHER ==
[~2024-05-22] VITALS: Ht 152.4 cm; Wt 68.9 kg
[~2024-05-22 12:25] MED LIST: no home meds
[2024-05-22 12:52] VITALS: TEMP 98.5
[2024-05-22 13:18] LABS: BASOPHILS # (AUTO) 0.1 (0.0-0.1); BASOPHILS % 0.6 % (0.0-1.0); EOSINOPHILS # (AUTO) 0.2 (0.0-0.4); EOSINOPHILS % 2.1 % (0.0-6.0); HEMATOCRIT 36.2 % (34.2-44.1); HEMOGLOBIN 12.6 g/dL (12.0-16.0); LYMPHOCYTES # (AUTO) 2.1 (1.0-3.2); LYMPHOCYTES % 21.4 % (18.0-39.1); MEAN CORPUSCULAR HEMOGLOBIN 30.4 pg (28-32); MEAN CORPUSCULAR HGB CONC 34.8 g/dL (31-35); MEAN CORPUSCULAR VOLUME 87.2 fL (81-99); MONOCYTES # (AUTO) 0.5 (0.2-0.8); MONOCYTES % 5.2 % (4.4-11.3); NEUTROPHILS # (AUTO) 6.8 (2.1-6.9); NEUTROPHILS % 70.5 % (38.7-80.0); PLATELET COUNT 271 x10e3/uL (140-360); RED BLOOD COUNT 4.15 x10e6/uL (3.6-5.1); RED CELL DISTRIBUTION WIDTH 12.8 % (11.7-14.4); WHITE BLOOD COUNT 9.61 x10e3/uL (4.8-10.8)
[2024-05-22] MEDS: ONDANSETRON HCL INJ 2MG/ML 2ML 2 MG/ML VIAL IV STA (13:33)
[2024-05-22] MEDS: SODIUM CHLORIDE 0.9% 1000ML 1,000 ML IV STA (13:33)
[2024-05-22] MEDS: Morphine 4mg INJECTION 4 MG/ML INJ IV STA (13:33)
[2024-05-22 13:38] LABS: INR 0.89; PARTIAL THROMBOPLASTIN TIME 25.2 seconds (23.8-35.5); PROTHROMBIN TIME 12.6 seconds (11.9-14.5)
[2024-05-22 13:39] LABS: ALBUMIN 4.2 g/dL (3.5-5.0); ALBUMIN/GLOBULIN RATIO 1.2 (0.8-2.0); ANION GAP 16.7 mmol/L (8-16); BILIRUBIN,TOTAL 0.4 mg/dL (0.2-1.2); CALCIUM 9.6 mg/dL (8.4-10.2); CREATININE, SERUM 1.54 mg/dL (0.57-1.11); POTASSIUM 4.7 mmol/L (3.5-5.1); TOTAL PROTEIN 7.8 g/dL (6.5-8.1)
[2024-05-22 13:56] LABS: WBC,URINE (MAN) >50 /HPF (0-5)
[2024-05-22 13:57] LABS: BACTERIA,URINE MANY /HPF; CLARITY,URINE CLEAR (CLEAR); COLOR,URINE COLORLESS (YELLOW); EPITHELIAL CELLS,URINE MODERATE /LPF; GLUCOSE, URINE 1+ (NEGATIVE); KETONES,URINE NEGATIVE (NEGATIVE); LEUKOCYTE ESTERASE ,URINE TRACE (NEGATIVE); NITRITE,URINE NEGATIVE (NEGATIVE); PH,URINE 5.5 (5 - 7); PROTEIN,URINE DIPSTICK 2+ (NEGATIVE); URINE UROBILINOGEN 0.2 mg/dL (0.2 - 1)
[2024-05-22] MEDS ORDERED: IOPAMIDOL 370 MG/ML 100 ML INFUS..BTL INJ ONE (13:57)
[2024-05-22 13:58] LABS: BILIRUBIN,URINE NEGATIVE (NEGATIVE)
[2024-05-22 14:05] LABS: CREATINE KINASE 159 IU/L (29-168); MAGNESIUM 1.7 MG/DL (1.3-2.1)
[2024-05-22 14:11] LABS: TROPONIN I < 0.001 ng/mL (0-0.300)
[2024-05-22] MEDS: CEFTRIAXONE 2 GM in SODIUM CHLORIDE 0.9% 100 ML IV ONE (14:50)
[2024-05-22] MEDS: Vancomycin IV 1 GM in SODIUM CHLORIDE 0.9% 250ML 250 ML IV ONE (14:51)
[2024-05-22] MEDS ORDERED: Morphine 2mg Syringe 2 MG/ML SYR IV PRN (15:45)
[2024-05-22] MEDS ORDERED: ONDANSETRON HCL INJ 2MG/ML 2ML 2 MG/ML VIAL IV PRN (15:45)
[2024-05-22] MEDS: SODIUM CHLORIDE 0.9% 1000ML 1,000 ML IV SCH (15:45)
[2024-05-22 17:08] VITALS: PULSE 107; RESP 18
[2024-05-22 20:00] VITALS: BP 138/71; PULSE 105; RESP 16; TEMP 97.5; O2SAT 100
[2024-05-22] MEDS: INSULIN LISPRO 100 UNIT/1 ML 3ML VIAL SQ SCH (23:45)
[2024-05-22] MEDS ORDERED: DEXTROSE 50% SYRINGE 50 ML IV PRN (23:45)
[2024-05-22] MEDS ORDERED: TEMAZEPAM 15 MG CAP PO PRN (23:45)
[2024-05-22] MEDS ORDERED: ACETAMINOPHEN 325 MG TAB PO PRN (23:45)
[2024-05-23] VITALS: BP 139/80; PULSE 91; RESP 16; TEMP 97.5; O2SAT 99
[2024-05-23 00:25] VITALS: BP 138/71; PULSE 105; RESP 16; TEMP 97.5; O2SAT 100
[2024-05-23] MEDS: MAGNESIUM SULFATE 2GM/50ML IV ONE (00:57)
[2024-05-23 01:09] LABS: CREATINE KINASE 115 IU/L (29-168)
[2024-05-23 01:25] LABS: TROPONIN I < 0.001 ng/mL (0-0.300)
[2024-05-23] MEDS ORDERED: METFORMIN HCL500 MG PO (03:57)
[2024-05-23] MEDS ORDERED: LISINOPRIL2.5 MG PO (03:57)
[2024-05-23] MEDS ORDERED: GLIMEPIRIDE4 MG PO (03:57)
[2024-05-23] MEDS ORDERED: ROSUVASTATIN CA20 MG PO (03:57)
[2024-05-23 04:27] VITALS: BP 150/76; PULSE 87; RESP 18; TEMP 97.5; O2SAT 100
[2024-05-23 04:57] LABS: BASOPHILS # (AUTO) 0.1 (0.0-0.1); BASOPHILS % 0.7 % (0.0-1.0); EOSINOPHILS # (AUTO) 0.3 (0.0-0.4); EOSINOPHILS % 3.2 % (0.0-6.0); HEMATOCRIT 31.4 % (34.2-44.1); HEMOGLOBIN 10.6 g/dL (12.0-16.0); LYMPHOCYTES # (AUTO) 1.8 (1.0-3.2); LYMPHOCYTES % 20.9 % (18.0-39.1); MEAN CORPUSCULAR HEMOGLOBIN 30.2 pg (28-32); MEAN CORPUSCULAR HGB CONC 33.8 g/dL (31-35); MEAN CORPUSCULAR VOLUME 89.5 fL (81-99); MONOCYTES # (AUTO) 0.6 (0.2-0.8); MONOCYTES % 7.2 % (4.4-11.3); NEUTROPHILS # (AUTO) 5.8 (2.1-6.9); NEUTROPHILS % 67.9 % (38.7-80.0); PLATELET COUNT 245 x10e3/uL (140-360); RED BLOOD COUNT 3.51 x10e6/uL (3.6-5.1); RED CELL DISTRIBUTION WIDTH 12.7 % (11.7-14.4); WHITE BLOOD COUNT 8.52 x10e3/uL (4.8-10.8)
[2024-05-23 05:19] LABS: ALBUMIN 3.5 g/dL (3.5-5.0); ALBUMIN/GLOBULIN RATIO 1.3 (0.8-2.0); ANION GAP 13.4 mmol/L (8-16); BILIRUBIN,TOTAL 0.3 mg/dL (0.2-1.2); CALCIUM 8.7 mg/dL (8.4-10.2); CREATININE, SERUM 1.06 mg/dL (0.57-1.11); POTASSIUM 4.4 mmol/L (3.5-5.1); TOTAL PROTEIN 6.3 g/dL (6.5-8.1)
[2024-05-23 05:59] LABS: CREATINE KINASE 119 IU/L (29-168)
[2024-05-23 06:10] LABS: TROPONIN I < 0.001 ng/mL (0-0.300)
[2024-05-23 06:19] LABS: CHOL/HDL RATIO 2.8 (3.0-3.6)
[2024-05-23 06:41] LABS: MAGNESIUM 2.4 MG/DL (1.3-2.1); PHOSPHORUS 3.8 MG/DL (2.3-4.7)
[2024-05-23 07:02] LABS: THYROID STIMULATING HORMONE 10.75 uIU/mL (0.350-4.940)
[2024-05-23 07:54] VITALS: BP 164/86; PULSE 97; RESP 18; TEMP 98.4; O2SAT 98
[2024-05-23 09:05] VITALS: BP 164/86; PULSE 97; RESP 18; TEMP 98.4; O2SAT 98
[2024-05-23] MEDS ORDERED: MAGNESIUM HYDROXIDE 30 ML UDC PO PRN (09:15)
[2024-05-23] MEDS: SENNA-S TABLET PO SCH (09:24)
[2024-05-23] MEDS: MAGNESIUM HYDROXIDE 30 ML UDC PO ONE (09:24)
[2024-05-23 20:00] VITALS: BP 147/60; PULSE 93; RESP 16; TEMP 97.7; O2SAT 100
[2024-05-24] VITALS (7 sets, daily range): BP systolic 113–192; BP diastolic 79–93; PULSE 88–95; RESP 18–20; TEMP 97.5–98.8; O2SAT 98–100
[2024-05-24 01:04] LABS: % IRON SATURATION 20 % (15-50); IRON 65 ug/dL (50-170); TOTAL IRON BINDING CAPACITY 318 ug/dL (261-478); TRANSFERRIN 227 mg/dL (180-382)
[2024-05-24 01:33] LABS: FOLATE 5.3 ng/mL (7.0-15.4)
[2024-05-24] MEDS: SENNA-S TABLET PO SCH (09:22)
[2024-05-24] MEDS: FOLIC ACID 1 MG TAB PO SCH (09:22)
[2024-05-24] MEDS: LEVOTHYROXINE SODIUM 50 MCG TAB PO SCH (09:23)
[2024-05-24] MEDS: INSULIN GLARGINE 100 UNITS/ML VIAL SQ SCH (22:30)
[2024-05-24] MEDS: HYDRALAZINE HCL 20 MG/ML VIAL IV PRN (23:02)
[2024-05-25] VITALS (8 sets, daily range): BP systolic 127–161; BP diastolic 62–92; PULSE 87–100; RESP 16–20; TEMP 97.4–98.5; O2SAT 97–100
[2024-05-25] MEDS ORDERED: ROCURONIUM BROMIDE 1 ML IV ONE (10:28)
[2024-05-25] MEDS ORDERED: LIDOCAINE HCL 2% LOCAL INJ 5 ML SDV VIAL INJ ONE (10:28)
[2024-05-25] MEDS ORDERED: PROPOFOL IV EMULSION 10 MG/ML 20 ML VIAL ONE (10:29)
[2024-05-25] MEDS ORDERED: FENTANYL CITRATE/PF 100MCG/2 ML INJ ONE ×2 (10:29→11:32)
[2024-05-25] MEDS ORDERED: PHENYLEPHRINE HCL 1% 10 MG/ML VIAL ONE (10:42)
[2024-05-25] MEDS ORDERED: SODIUM CHLORIDE 0.9% 100 ML ONE (10:43)
[2024-05-25] MEDS ORDERED: ACETAMINOPHEN 1000 MG/100 ML 100 ML IV ONE (10:43)
[2024-05-25] MEDS ORDERED: DEXAMETHASONE SOD PHOS INJ 4 MG/ML SDV ONE (10:59)
[2024-05-25] MEDS ORDERED: METOCLOPRAMIDE HCL 10 MG/2ML VIAL ONE (11:18)
[2024-05-25] MEDS ORDERED: ONDANSETRON HCL INJ 2MG/ML 2ML 2 MG/ML VIAL ONE (11:18)
[2024-05-25] MEDS ORDERED: KETOROLAC TROMETHAMINE 30 MG/ML VIAL ONE (11:18)
[2024-05-25] MEDS ORDERED: NEOSTIGMINE 1 MG/ML 10ML VIAL ONE (11:25)
[2024-05-25] MEDS ORDERED: METOPROLOL TARTRATE INJ 1 MG/ML VIAL ONE (11:32)
[2024-05-25] MEDS ORDERED: Morphine 2mg Syringe 2 MG/ML SYR IV PRN (12:00)
[2024-05-26 04:24] VITALS: BP 161/75; PULSE 97; RESP 20; TEMP 97.8; O2SAT 100
[2024-05-26 07:43] VITALS: BP 137/65; PULSE 100; RESP 16; TEMP 98.6; O2SAT 100
[2024-05-26 07:49] VITALS: BP 137/65; PULSE 100; RESP 16; TEMP 98.6; O2SAT 100
[2024-05-26 11:39] LABS: BASOPHILS % 0.4 % (0.0-1.0); EOSINOPHILS % 0.4 % (0.0-6.0); HEMATOCRIT 30.6 % (34.2-44.1); HEMOGLOBIN 10.4 g/dL (12.0-16.0); LYMPHOCYTES # (AUTO) 0.9 (1.0-3.2); LYMPHOCYTES % 9.3 % (18.0-39.1); MEAN CORPUSCULAR HEMOGLOBIN 30.1 pg (28-32); MEAN CORPUSCULAR VOLUME 88.4 fL (81-99); MONOCYTES # (AUTO) 0.8 (0.2-0.8); MONOCYTES % 8.8 % (4.4-11.3); NEUTROPHILS # (AUTO) 7.4 (2.1-6.9); NEUTROPHILS % 80.9 % (38.7-80.0); PLATELET COUNT 228 x10e3/uL (140-360); RED BLOOD COUNT 3.46 x10e6/uL (3.6-5.1); RED CELL DISTRIBUTION WIDTH 13.3 % (11.7-14.4)
[2024-05-26 11:59] LABS: ANION GAP 12.7 mmol/L (8-16); CALCIUM 8.6 mg/dL (8.4-10.2); CREATININE, SERUM 1.07 mg/dL (0.57-1.11); POTASSIUM 3.7 mmol/L (3.5-5.1)
[2024-05-26 12:30] VITALS: BP 137/64; PULSE 108; RESP 18; TEMP 98.7
[2024-05-26] MEDS ORDERED: SEVOFLURANE INHAL SOLN 250 ML PEN BTL ONE (13:05)
== END 2024-05-26 15:46 | disposition home or self-care (01) | DRG 418 ==
LOC: ER 12:52 → ERHOLD 15:39 → MED/SURG 19:19
PROVIDERS: ADMIT Internal Medicine; ATTEND Internal Medicine
PROC: 0FT44ZZ Resection of Gallbladder, Percutaneous Endoscopic Approach (ICD-10-PCS; principal; 2024-05-25 10:30)
DX: K80.10 Calculus of gallbladder with chronic cholecystitis without obstruction (principal); N12 Tubulo-interstitial nephritis, not specified as acute or chronic; N17.9 Acute kidney failure, unspecified; E11.65 Type 2 diabetes mellitus with hyperglycemia; E03.9 Hypothyroidism, unspecified; D64.9 Anemia, unspecified; E78.5 Hyperlipidemia, unspecified; I10 Essential (primary) hypertension; E86.0 Dehydration; Z79.84 Long term (current) use of oral hypoglycemic drugs; Z79.890 Hormone replacement therapy; Z85.820 Personal history of malignant melanoma of skin; Z88.0 Allergy status to penicillin
CPT/HCPCS: 36415; 71045; 74177; 76705; 78227; 80048; 80053; 80061; 81001; 82550; 82607; 82746; 82948; 83036; 83540; 83690; 83735; 84100; 84443; 84466; 84484; 85025; 85045; 85610; 85730; 87086; 87186; 88304; 93005; 94760; 96372; 99283; A9537; J0360; J0696; J1100; J1815; J1885; J2003; J2270; J2371; J2405; J2470; J2710; J2765; J3475; J7030; J7050; Q9967